=== PATIENT | female | born 1990 | race Caucasian/White ===

== ENCOUNTER 2018-08-19 12:50 | Emergency (ER) | payer OTHER ==
[2018-08-19 13:02] VITALS: O2SAT 98; BMI 23.2
[2018-08-19] MEDS ORDERED: Sodium Chloride 0.9% 1,000 ML IV STA (13:24)
--- NOTE | 2018-08-19 13:33 | ED PDOC ---
History of Present Illness History of Present Illness: 27yo female, otherwise well, comes to ER reporting malaise, arthalgia, sore throat x 3 days. She reports fever as well with Tmax of 103; reports some relief with motrin, last dose yesterday. Also c/o swelling to both hands. No complaints of chest pain, shortness of breath, or abdominal pain. PMD: Radha Villarreal HPI: Influenza Time Seen by Provider: 08/19/18 13:17 Chief Complaint: Flu-like Symptoms Chief Complaint (Provider): Flu like symptoms History Per: Patient Exam Limitations: no limitations Have you had recent travel within the past 21 days to any of: No Onset/Duration Of Symptoms: Days (3) Symptoms include: fever, bodyaches, sore throat Past Medical History Reviewed: Historical Data, Nursing Documentation, Vital Signs Vital Signs: Last Vital Signs Temp 97.7 F 08/19/18 12:59 Pulse 67 08/19/18 12:59 Resp 18 08/19/18 12:59 BP 109/68 08/19/18 12:59 Pulse Ox 98 08/19/18 12:59 - Medical History PMH: CAD, Deep Vein Thrombosis Denies: HTN - Family History Family History: States: Unknown Family Hx - Immunization History Hx Tetanus Toxoid Vaccination: No Hx Influenza Vaccination: No Hx Pneumococcal Vaccination: No - Home Medications Home Medications: Ambulatory Orders Medication Instructions Recorded Ondansetron [Zofran Odt] 4 mg PO Q8 PRN #20 odt 07/17/14 Naproxen [Naprosyn] 500 mg PO BID PRN #15 tablet 08/19/18 - Allergies Allergies/Adverse Reactions: Allergies Allergy/AdvReac Type Severity Reaction Status Date / Time ANTIBIOTIC Allergy RASH Uncoded 08/19/18 13:08 Review of Systems ROS Statement: Except As Marked, All Systems Reviewed And Found Negative Constitutional: Positive for: Fever, Malaise ENT: Positive for: Throat Pain Cardiovascular: Negative for: Chest Pain Respiratory: Negative for: Shortness of Breath Gastrointestinal: Negative for: Abdominal Pain Physical Exam - Reviewed Nursing Documentation Reviewed: Yes Vital Signs Reviewed: Yes (afebrile) - Physical Exam Appears: Positive for: Non-toxic, No Acute Distress Head Exam: Positive for: ATRAUMATIC, NORMAL INSPECTION, NORMOCEPHALIC Skin: Positive for: Normal Color Eye Exam: Positive for: EOMI, PERRL ENT: Negative for: Pharyngeal Erythema Neck: Positive for: Normal, Painless ROM, Supple Cardiovascular/Chest: Positive for: Regular Rate, Rhythm. Negative for: Tachycardia Respiratory: Positive for: Normal Breath Sounds. Negative for: Respiratory Distress Gastrointestinal/Abdominal: Positive for: Normal Exam, Soft Extremity: Positive for: Normal ROM Neurological/Psych: Positive for: Awake, Alert, Normal Tone Medical Decision Making Medical Decision Making: Impression: Flu like symptoms, r/o influenza, strep throat Plan: -- Motrin 600mg PO -- Rapid flu -- Rapid strep 1520 On reassessment, patient reports improvement in symptoms. Rapid flu and rapid strep both negative. Patient informed on symptomatic care, instructed to take Motrin as needed for pain, increase hydration. Stable for discharge home. Scribe Attestation: Documented by Lily Paula acting as a scribe for Fern More MD Provider Scribe Attestation: All medical record entries made by the Scribe were at my direction and personally dictated by me. I have reviewed the chart and agree that the record accurately reflects my personal performance of the history, physical exam, medical decision making, and the department course for this patient. I have also personally directed, reviewed, and agree with the discharge instructions and disposition. - Laboratory Results Result Diagrams: 08/19/18 13:45 08/19/18 13:45 - ECG O2 Sat by Pulse Oximetry: 98 Disposition - Clinical Impression Clinical Impression: Viral syndrome - Disposition Referrals: [facility] [Outside] [facility] [Outside] Disposition: Routine/Home Disposition Time: 15:21 Condition: STABLE Prescriptions: Naproxen [Naprosyn] 500 mg PO BID PRN #15 tablet PRN Reason: Pain, Moderate (4-7) Instructions: Viral Syndrome (DC) Forms: [facility] (Polish)
[2018-08-19 14:09] LABS: BASO % 0.3 % (0.0-2.0); EOS # 0.2 K/uL (0.0-0.7); EOS % 3.7 % (0.0-4.0); HEMOGLOBIN 10.6 g/dL (12.0-16.0); LYMPH # 0.9 K/uL (1.0-4.3); LYMPH % 16.6 % (20.0-40.0); MEAN CELL VOLUME 82.2 fl (81.0-99.0); MEAN CORPUSCULAR HEMOGLOBIN 26.8 pg (27.0-31.0); MEAN CORPUSCULAR HGB CONC 32.6 g/dL (33.0-37.0); MEAN PLATELET VOLUME 9.2 fl (7.2-11.7); MONO # 0.3 K/uL (0.0-0.8); MONO % 4.8 % (0.0-10.0); NEUT % 74.6 % (50.0-75.0); RBC 3.94 Mil/uL (3.80-5.20); RED CELL DISTRIBUTION WIDTH 15.3 % (11.5-14.5); WHITE BLOOD COUNT 5.4 K/uL (4.8-10.8)
[2018-08-19 14:15] LABS: SQUAMOUS EPITHIAL 2 /hpf (0-5); URINE AMORPHOUS SEDIMENT RARE /ul (<OCC); URINE BILIRUBIN NEGATIVE (NEGATIVE); URINE BLOOD SMALL (NEGATIVE); URINE CLARITY SLIGHTY-CLOUDY (Clear); URINE COLOR YELLOW (YELLOW); URINE GLUCOSE (UA) NEG (NEGATIVE); URINE LEUKOCYTE ESTERASE NEG Leu/uL (Negative); URINE PROTEIN NEGATIVE (NEGATIVE); URINE UROBILINOGEN 0.2-1.0 mg/dL (0.2-1.0)
[2018-08-19 14:20] LABS: ALT/SGPT 17 U/L (9-52); AST/SGOT 23 U/L (14-36); BLOOD UREA NITROGEN 15 mg/dl (7-17); CALCIUM 8.9 mg/dL (8.4-10.2); GFR NON-AFRICAN AMERICAN > 60
[2018-08-19 17:19] VITALS: BP 123/78; PULSE 78; RESP 19; TEMP 97.5
== END 2018-08-19 17:20 | disposition home or self-care (01) ==
LOC: H.ER 12:50
DX: B34.9 Viral infection, unspecified (principal)
CPT/HCPCS: 80053; 81003; 81025; 85025; 87070; 87430; 87804; 96374; 99282; J1885; J7030